=== PATIENT | female | born 1985 | race Caucasian/White ===

== ENCOUNTER 2016-11-21 16:09 | Emergency (ER) | payer SELFPAY ==
[2016-11-21] MEDS ORDERED: cefTRIAXone 250 MG Vial IM ONE (16:29)
--- NOTE | 2016-11-21 16:37 | EDM.PDOC ---
ED HPI GENERAL MEDICAL PROBLEM - General Chief Complaint: Skin Complaint Stated Complaint: POSSIBLE INFECTION LT ARM Time Seen by Provider: 11/21/16 16:20 Source of Information: Reports: Patient History Limitations: Reports: No Limitations - History of Present Illness INITIAL COMMENTS - FREE TEXT/NARRATIVE: History of present illness: 31-year-old female presenting with acute onset pain and swelling and erythema to left upper arm. Patient recently had a cover tattoo approximately 2 days ago by an artist she has never gone to before and has had increasing pain and difficulty with the arm since. Review of systems: As per history of present illness and below otherwise all systems reviewed and negative. Past medical history: As per history of present illness and as reviewed below otherwise noncontributory. Surgical history: As per history of present illness and as reviewed below otherwise noncontributory. Social history: No reported history of drug or alcohol abuse. Family history: As per history of present illness and as reviewed below otherwise noncontributory. Physical exam: HEENT: Atraumatic, normocephalic, pupils reactive, negative for conjunctival pallor or scleral icterus, mucous membranes moist, throat clear, neck supple, nontender, trachea midline. Lungs: Clear to auscultation, breath sounds equal bilaterally, chest nontender. Heart: S1S2, regular, negative for clicks, rubs, or JVD. Abdomen: Soft, nondistended, nontender. Negative for masses or hepatosplenomegaly. Negative for costovertebral tenderness. Pelvis: Stable nontender. Genitourinary: Deferred. Rectal: Deferred. Extremities: Left upper arm with significant amount of body are in the upper bicep wrapping around to the tricep now with significant amount of erythema in a circumferential pattern on the arm that is also edematous and warm to the touch, otherwise negative for cords or calf pain. Neurovascular unremarkable. Neuro: Awake, alert, oriented. Cranial nerves II through XII unremarkable. Cerebellum unremarkable. Motor and sensory unremarkable throughout. Exam nonfocal. Diagnostics: [] Therapeutics: [2 g Rocephin IM] Impression: [Cellulitis] Plan: [Keflex] Definitive disposition and diagnosis as appropriate pending reevaluation and review of above. Left Arm Pain Score (Numeric/FACES): 7 - Related Data Allergies Allergy/AdvReac Type Severity Reaction Status Date / Time No Known Allergies Allergy Verified 11/21/16 16:18 Home Meds: Home Meds Cephalexin [Keflex] 500 mg PO QID #40 capsule 11/21/16 [Rx] Past Medical History - Past Health History Medical/Surgical History: Denies Medical/Surgical History - Infectious Disease History Infectious Disease History: Reports: Chicken Pox Social & Family History - Family History Family Medical History: Noncontributory - Tobacco Use Smoking Status *Q: Never Smoker Second Hand Smoke Exposure: No - Alcohol Use Days Per Week of Alcohol Use: 3 Number of Drinks Per Day: 2 Total Drinks Per Week: 6 - Recreational Drug Use Recreational Drug Use: No ED ROS GENERAL - Review of Systems Review Of Systems: See Below (See history of present illness) ED EXAM, SKIN/RASH Exam: See Below (History of present illness) Course - Vital Signs Last Recorded V/S: Last Vital Signs Temp 37.1 C 11/21/16 16:18 Pulse 83 11/21/16 16:18 Resp 16 11/21/16 16:18 BP 119/78 11/21/16 16:18 Pulse Ox 100 11/21/16 16:18 - Orders/Labs/Meds Meds: Medications Discontinued Medications Generic Name Dose Route Start Last Admin Trade Name Freq PRN Reason Stop Dose Admin Ceftriaxone Sodium 2,000 mg 11/21/16 16:29 Rocephin IM 11/21/16 16:30 ONETIME ONE Departure - Departure Time of Disposition: 16:36 Disposition: Home, Self-Care 01 Condition: Good Clinical Impression: Cellulitis - Discharge Information Prescriptions: Cephalexin [Keflex] 500 mg PO QID #40 capsule Forms: ED Department Discharge Additional Instructions: The following information is given to patients seen in the emergency department who are being discharged to home. This information is to outline your options for follow-up care. We provide all patients seen in our emergency department with a follow-up referral. The need for follow-up, as well as the timing and circumstances, are variable depending upon the specifics of your emergency department visit. If you don't have a primary care physician on staff, we will provide you with a referral. We always advise you to contact your personal physician following an emergency department visit to inform them of the circumstance of the visit and for follow-up with them and/or the need for any referrals to a consulting specialist. The emergency department will also refer you to a specialist when appropriate. This referral assures that you have the opportunity for follow-up care with a specialist. All of these measure are taken in an effort to provide you with optimal care, which includes your follow-up. Under all circumstances we always encourage you to contact your private physician who remains a resource for coordinating your care. When calling for follow-up care, please make the office aware that this follow-up is from your recent emergency room visit. If for any reason you are refused follow-up, please contact the [facility] Emergency Department at and asked to speak to the emergency department charge nurse. Take medication as directed All primary care provider when to 2 days Return to ED as needed as discussed
[2016-11-21] MEDS ORDERED: cefTRIAXone 2,000 MG in Lidocaine 1% 4 ML IM ONE ×2 (16:55→17:01)
[2016-11-21] MEDS ORDERED: cefTRIAXone 2,000 MG, Lidocaine 1% 2.1 ML IM SCH ×2 (17:00)
== END 2016-11-21 17:32 | disposition home or self-care (01) ==
LOC: MW.ED 16:09
DX: L03.114 Cellulitis of left upper limb (principal)
CPT/HCPCS: 96372; 99283; J0696

== ENCOUNTER 2017-02-24 16:47 | Emergency (ER) | payer SELFPAY ==
[2017-02-24] MEDS ORDERED: diphenhydrAMINE 50 MG Cap PO ONE (16:56)
[2017-02-24] MEDS ORDERED: Cetirizine 10 MG Tab PO ONE (16:56)
--- NOTE | 2017-02-24 16:59 | EDM.PDOC ---
ED HPI GENERAL MEDICAL PROBLEM - General Chief Complaint: Bite:Animal, Insect Stated Complaint: PT HAS BEE STING Time Seen by Provider: 02/24/17 16:57 Source of Information: Reports: Patient History Limitations: Reports: No Limitations - History of Present Illness INITIAL COMMENTS - FREE TEXT/NARRATIVE: HISTORY AND PHYSICAL: []31-year-old female presents with a bee sting to her palm of her right hand History of Present Illness: []Patient has allergy to bees that she "swells a lot", has never stopped breathing and/or admitted to ICU for her bee sting Review of Systems: As per history of present illness and below otherwise all systems reviewed and negative. Past medical history: As per history of present illness and as reviewed below otherwise noncontributory. Surgical history: As per history of present illness and as reviewed below otherwise noncontributory. Social history: No reported history of drug or alcohol abuse. Family history: As per history of present illness and as reviewed below otherwise noncontributory. Physical exam: Alert and oriented female who looks anxious answers questions appropriately in full sentences without shortness of breath HEENT: Atraumatic, normocehpalic, pupils reactive, negative for conjunctival pallor or scleral icterus, mucous membranes moist, throat clear, neck supple, nontender, trachea midline. Lungs: Clear to auscultation, breath sounds equal bilaterally, chest non tender. Heart: S1S2, regular, negative for clicks, rubs, or JVD. Abdomen: Soft, nondistended, nontender. Negative for masses or hepatossplenmegaly. Negative for costovertebral tenderness. Pelvis: Stable nontender. Genitourinary: Deferred. Rectal: Deferred Extremities: Atraumatic, negative for cords or calf pain. Bee sting noted to the palmar surface of her right hand distally Neurovascular unremarkable. Neuro: Awake, alert, oriented. Cranial nerves II through XII unremarkable. Cerebellum unremarkable. Motor and sensory unremarkable throughout. Exam nonfocal. After medications have been given the patient is doing quite well no shortness of breath no swelling to her throat Diagnostics: [] Therapeutics: []Benadryl Zyrtec Impression: [Bee sting] Plan: []Discharged to home Continue with the Benadryl as discussed Continue with the Zyrtec as discussed Any worsening of symptoms tightening of your throat return immediately to the emergency room for further evaluation Definitive disposition and diagnosis as appropriate pending reevaluation and review of above. Onset: Today, Sudden Right Hand Pain Score (Numeric/FACES): 6 - Related Data Allergies Allergy/AdvReac Type Severity Reaction Status Date / Time No Known Allergies Allergy Verified 02/24/17 16:54 Home Meds: Home Meds . [No Known Home Meds] 02/24/17 [History] Past Medical History - Past Health History Medical/Surgical History: Denies Medical/Surgical History - Infectious Disease History Infectious Disease History: Reports: Chicken Pox Social & Family History - Family History Family Medical History: Noncontributory - Tobacco Use Smoking Status *Q: Never Smoker Second Hand Smoke Exposure: No - Alcohol Use Days Per Week of Alcohol Use: 3 Number of Drinks Per Day: 2 Total Drinks Per Week: 6 - Recreational Drug Use Recreational Drug Use: No ED ROS GENERAL - Review of Systems Review Of Systems: ROS reveals no pertinent complaints other than HPI. ED EXAM, ANIMAL BITE - Physical Exam Exam: See Below (See dictation) Course - Vital Signs Last Recorded V/S: Last Vital Signs Temp 36.6 C 02/24/17 16:55 Pulse 94 02/24/17 16:55 Resp 16 02/24/17 16:55 BP 134/85 02/24/17 16:55 Pulse Ox 98 02/24/17 16:55 - Orders/Labs/Meds Meds: Medications Discontinued Medications Generic Name Dose Route Start Last Admin Trade Name Freq PRN Reason Stop Dose Admin Cetirizine HCl 10 mg 02/24/17 16:56 Zyrtec PO 02/24/17 16:57 ONETIME ONE Diphenhydramine HCl 50 mg 02/24/17 16:56 Benadryl PO 02/24/17 16:57 ONETIME ONE Departure - Departure Time of Disposition: 17:18 Disposition: Home, Self-Care 01 Condition: Good Clinical Impression: Bee sting reaction Qualifiers: Encounter type: initial encounter Injury intent: accidental or unintentional Qualified Code(s): T63.441A - Toxic effect of venom of bees, accidental ( unintentional), initial encounter - Discharge Information Forms: ED Department Discharge Additional Instructions: The following information is given to patients seen in the emergency department who are being discharged to home. This information is to outline your options for follow-up care. We provide all patients seen in our emergency department with a follow-up referral. The need for follow-up, as well as the timing and circumstances, are variable depending upon the specifics of your emergency department visit. If you don't have a primary care physician on staff, we will provide you with a referral. We always advise you to contact your personal physician following an emergency department visit to inform them of the circumstance of the visit and for follow-up with them and/or the need for any referrals to a consulting specialist. The emergency department will also refer you to a specialist when appropriate. This referral assures that you have the opportunity for followup care with a specialist. All of these measure are taken in an effort to provide you with optimal care, which includes your followup. Under all circumstances we always encourage you to contact your private physician who remains a resource for coordinating your care. When calling for followup care, please make the office aware that this follow-up is from your recent emergency room visit. If for any reason you are refused follow-up, please contact the [facility] emergency department at and asked to speak to the emergency department charge nurse. Continue with the Benadryl as discussed Continue with the Zyrtec as discussed Any worsening of your breathing or throat tightening please return immediately for reevaluation
[2017-02-24 17:55] VITALS: BP 118/82
== END 2017-02-24 17:26 | disposition home or self-care (01) ==
LOC: MW.ED 16:47
DX: T63.441A Toxic effect of venom of bees, accidental (unintentional), initial encounter (principal)
CPT/HCPCS: 99283; A9270; 99282

== ENCOUNTER 2017-11-19 08:37 | Emergency (ER) | payer OTHER ==
[2017-11-19] MEDS ORDERED: Sodium Chloride 0.9% 1,000 ML IV ONE (08:38)
[2017-11-19] MEDS ORDERED: Aspirin 81 MG Tab.Chew PO ONE (08:38)
[2017-11-19] MEDS ORDERED: Pantoprazole 40 MG Vial IVPUSH ONE (08:39)
--- NOTE | 2017-11-19 08:39 | EDM.PDOC ---
ED HPI GENERAL MEDICAL PROBLEM - General Chief Complaint: Chest Pain Stated Complaint: CHEST PAIN Time Seen by Provider: 11/19/17 08:39 Source of Information: Reports: Patient - History of Present Illness INITIAL COMMENTS - FREE TEXT/NARRATIVE: HISTORY AND PHYSICAL: History of present illness: [Patient presents with chest pain began last night she has a history of anxiety untreated chest pain is 4 out of 10 nonradiating not associated with arm neck or jaw no associated shortness of breath or diaphoresis Pain is worse with deep inspiration she denies any cough sore throat runny nose No fever nausea vomiting chills sweats no headache dizziness or palpitation no bowel or urine symptoms History of tubal ligation ] Review of systems: As per history of present illness and below otherwise all systems reviewed and negative. Past medical history: As per history of present illness and as reviewed below otherwise noncontributory. Surgical history: As per history of present illness and as reviewed below otherwise noncontributory. Social history: No reported history of drug or alcohol abuse. Family history: As per history of present illness and as reviewed below otherwise noncontributory. Physical exam: HEENT: Atraumatic, normocephalic, pupils reactive, negative for conjunctival pallor or scleral icterus, mucous membranes moist, throat clear, neck supple, nontender, trachea midline. Lungs: Clear to auscultation, breath sounds equal bilaterally, chest tender along left sternal border and lower rib margins Heart: S1S2, regular, negative for clicks, rubs, or JVD. Abdomen: Soft, nondistended, nontender. Negative for masses or hepatosplenomegaly. Negative for costovertebral tenderness. Pelvis: Stable nontender. Genitourinary: Deferred. Rectal: Deferred. Extremities: Atraumatic, negative for cords or calf pain. Neurovascular unremarkable. Neuro: Awake, alert, oriented. Cranial nerves II through XII unremarkable. Cerebellum unremarkable. Motor and sensory unremarkable throughout. Exam nonfocal. Diagnostics: [CBC CMP UA troponin lipase hCG EKG Chest 1 view] Therapeutics: [1 L normal saline bolus Aspirin 324 mg chewable ] Rest ice ibuprofen Follow-up with primary care Impression: Costochondritis Definitive disposition and diagnosis as appropriate pending reevaluation and review of above. chest pain Pain Score (Numeric/FACES): 7 - Related Data Allergies Allergy/AdvReac Type Severity Reaction Status Date / Time No Known Allergies Allergy Verified 11/19/17 08:38 Home Meds: Home Meds . [No Known Home Meds] 02/24/17 [History] Past Medical History - Past Health History Medical/Surgical History: Denies Medical/Surgical History HEENT History: Reports: None Cardiovascular History: Reports: None Respiratory History: Reports: None Gastrointestinal History: Reports: None [employer] History: Reports: None Musculoskeletal History: Reports: None Neurological History: Reports: None Endocrine/Metabolic History: Reports: None Dermatologic History: Reports: None - Infectious Disease History Infectious Disease History: Reports: Chicken Pox - Past Surgical History HEENT Surgical History: Reports: None Cardiovascular Surgical History: Reports: None Respiratory Surgical History: Reports: None Female Surgical History: Reports: Other (See Below) Other Female Surgeries/Procedures: salpingectomy Neurological Surgical History: Reports: None Musculoskeletal Surgical History: Reports: None Social & Family History - Family History Family Medical History: Noncontributory ED ROS GENERAL - Review of Systems Review Of Systems: See Below ED EXAM, GENERAL - Physical Exam Exam: See Below Course - Vital Signs Last Recorded V/S: Last Vital Signs Temp 96.9 F 11/19/17 08:38 Pulse 77 11/19/17 10:28 Resp 20 11/19/17 10:28 BP 120/77 11/19/17 10:28 Pulse Ox 99 11/19/17 10:28 - Orders/Labs/Meds Orders: Active Orders 24 hr Category Date Time Status EKG Documentation Completion [RC] STAT Care 11/19/17 08:39 Active UA W/MICROSCOPIC [URIN] Stat Lab 11/19/17 10:23 Ordered Labs: Laboratory Tests 11/19/17 11/19/17 11/19/17 Range/Units 08:45 08:45 08:45 WBC 12.12 H (4.0-11.0) K/uL RBC 4.50 (4.30-5.90) M/uL Hgb 12.7 (12.0-16.0) g/dL Hct 38.8 (36.0-46.0) % MCV 86.2 (80.0-98.0) fL MCH 28.2 (27.0-32.0) pg MCHC 32.7 (31.0-37.0) g/dL RDW Std Deviation 44.9 (28.0-62.0) fl RDW Coeff of [place] 14 (11.0-15.0) % Plt Count 239 (150-400) K/uL MPV 11.40 (7.40-12.00) fL Neut % (Auto) 73.9 (48.0-80.0) % Lymph % (Auto) 16.3 (16.0-40.0) % [place] % (Auto) 7.8 (0.0-15.0) % Eos % (Auto) 1.8 (0.0-7.0) % Baso % (Auto) 0.2 (0.0-1.5) % Neut # (Auto) 9.0 H (1.4-5.7) K/uL Lymph # (Auto) 2.0 (0.6-2.4) K/uL [place] # (Auto) 0.9 H (0.0-0.8) K/uL Eos # (Auto) 0.2 (0.0-0.7) K/uL Baso # (Auto) 0.0 (0.0-0.1) K/uL Nucleated RBC % 0.0 /100WBC Nucleated RBCs # 0 K/uL Sodium 138 (136-145) mmol/L Potassium 4.3 (3.5-5.1) mmol/L Chloride 105 (98-107) mmol/L Carbon Dioxide 25.7 (21.0-32.0) mmol/L BUN 14 (7.0-18.0) mg/dL Creatinine 0.9 (0.6-1.0) mg/dL Est Cr Clr Drug Dosing 80.00 mL/min Estimated GFR (MDRD) > 60.0 ml/min Glucose 83 (74-106) mg/dL Calcium 8.8 (8.5-10.1) mg/dL Total Bilirubin 0.6 (0.2-1.0) mg/dL AST 19 (15-37) IU/L ALT 21 (14-63) IU/L Alkaline Phosphatase 71 (46-116) U/L Troponin I < 0.050 (0.000-0.056) ng/mL C-Reactive Protein 1.70 H (0.00-0.90) mg/dL Total Protein 7.4 (6.4-8.2) g/dL Albumin 3.6 (3.4-5.0) g/dL Globulin 3.8 H (2.0-3.5) g/dL Albumin/Globulin Ratio 1.0 L (1.3-2.8) Lipase 90 (73-393) U/L Urine Color Urine Appearance Urine pH (5.0-8.0) Ur Specific [place] (1.001-1.035) Urine Protein (NEGATIVE) mg/dL Urine Glucose (UA) (NEGATIVE) mg/dL Urine Ketones (NEGATIVE) mg/dL Urine Occult Blood (NEGATIVE) Urine Nitrite (NEGATIVE) Urine Bilirubin (NEGATIVE) Urine Urobilinogen (<2.0) EU/dL Ur Leukocyte Esterase (NEGATIVE) Urine RBC (0-2/HPF) Urine WBC (0-5/HPF) Ur Epithelial Cells (NONE-FEW) Urine Bacteria (NEGATIVE) 11/19/17 Range/Units 10:23 WBC (4.0-11.0) K/uL RBC (4.30-5.90) M/uL Hgb (12.0-16.0) g/dL Hct (36.0-46.0) % MCV (80.0-98.0) fL MCH (27.0-32.0) pg MCHC (31.0-37.0) g/dL RDW Std Deviation (28.0-62.0) fl RDW Coeff of [place] (11.0-15.0) % Plt Count (150-400) K/uL MPV (7.40-12.00) fL Neut % (Auto) (48.0-80.0) % Lymph % (Auto) (16.0-40.0) % [place] % (Auto) (0.0-15.0) % Eos % (Auto) (0.0-7.0) % Baso % (Auto) (0.0-1.5) % Neut # (Auto) (1.4-5.7) K/uL Lymph # (Auto) (0.6-2.4) K/uL [place] # (Auto) (0.0-0.8) K/uL Eos # (Auto) (0.0-0.7) K/uL Baso # (Auto) (0.0-0.1) K/uL Nucleated RBC % /100WBC Nucleated RBCs # K/uL Sodium (136-145) mmol/L Potassium (3.5-5.1) mmol/L Chloride (98-107) mmol/L Carbon Dioxide (21.0-32.0) mmol/L BUN (7.0-18.0) mg/dL Creatinine (0.6-1.0) mg/dL Est Cr Clr Drug Dosing mL/min Estimated GFR (MDRD) ml/min Glucose (74-106) mg/dL Calcium (8.5-10.1) mg/dL Total Bilirubin (0.2-1.0) mg/dL AST (15-37) IU/L ALT (14-63) IU/L Alkaline Phosphatase (46-116) U/L Troponin I (0.000-0.056) ng/mL C-Reactive Protein (0.00-0.90) mg/dL Total Protein (6.4-8.2) g/dL Albumin (3.4-5.0) g/dL Globulin (2.0-3.5) g/dL Albumin/Globulin Ratio (1.3-2.8) Lipase (73-393) U/L Urine Color YELLOW Urine Appearance CLEAR Urine pH 6.5 (5.0-8.0) Ur Specific [place] <= 1.005 (1.001-1.035) Urine Protein NEGATIVE (NEGATIVE) mg/dL Urine Glucose (UA) NEGATIVE (NEGATIVE) mg/dL Urine Ketones NEGATIVE (NEGATIVE) mg/dL Urine Occult Blood NEGATIVE (NEGATIVE) Urine Nitrite NEGATIVE (NEGATIVE) Urine Bilirubin NEGATIVE (NEGATIVE) Urine Urobilinogen 0.2 (<2.0) EU/dL Ur Leukocyte Esterase NEGATIVE (NEGATIVE) Urine RBC 0-2 (0-2/HPF) Urine WBC 0-1 (0-5/HPF) Ur Epithelial Cells RARE (NONE-FEW) Urine Bacteria RARE (NEGATIVE) Meds: Medications Discontinued Medications Generic Name Dose Route Start Last Admin Trade Name Freq PRN Reason Stop Dose Admin Aspirin 324 mg 11/19/17 08:38 11/19/17 09:00 Aspirin PO 11/19/17 08:39 324 mg ONETIME ONE Administration Sodium Chloride 1,000 mls @ 999 mls/hr 11/19/17 08:38 11/19/17 09:00 Normal Saline IV 06/13/18 09:38 999 mls/hr STAT ONE Administration Lorazepam 1 mg 11/19/17 08:42 11/19/17 08:59 Ativan IVPUSH 11/19/17 08:43 1 mg ONETIME ONE Administration Pantoprazole Sodium 80 mg 11/19/17 08:39 11/19/17 08:59 Protonix Iv IVPUSH 11/19/17 08:40 80 mg .BOLUS ONE Administration Departure - Departure Time of Disposition: 10:45 Disposition: Home, Self-Care 01 Condition: Good Clinical Impression: Costochondritis, acute - Discharge Information Forms: ED Department Discharge Additional Instructions: Rest Ice 20 minute intervals 3 times daily 7-10 days Ibuprofen 400 mg 3 times daily 7-10 days Follow-up with primary care in 2 weeks sooner as needed [facility] - Primary Care [address] [place] [id number] The following information is given to patients seen in the emergency department who are being discharged to home. This information is to outline your options for follow-up care. We provide all patients seen in our emergency department with a follow-up referral. The need for follow-up, as well as the timing and circumstances, are variable depending upon the specifics of your emergency department visit. If you don't have a primary care physician on staff, we will provide you with a referral. We always advise you to contact your personal physician following an emergency department visit to inform them of the circumstance of the visit and for follow-up with them and/or the need for any referrals to a consulting specialist. The emergency department will also refer you to a specialist when appropriate. This referral assures that you have the opportunity for follow-up care with a specialist. All of these measure are taken in an effort to provide you with optimal care, which includes your follow-up. Under all circumstances we always encourage you to contact your private physician who remains a resource for coordinating your care. When calling for follow-up care, please make the office aware that this follow-up is from your recent emergency room visit. If for any reason you are refused follow-up, please contact the [facility] emergency department at and asked to speak to the emergency department charge nurse. - My Orders Last 24 Hours: My Active Orders 11/19/17 08:39 EKG Documentation Completion [RC] STAT 11/19/17 10:23 UA W/MICROSCOPIC [URIN] Stat - Assessment/Plan Last 24 Hours: My Active Orders 11/19/17 08:39 EKG Documentation Completion [RC] STAT 11/19/17 10:23 UA W/MICROSCOPIC [URIN] Stat
[2017-11-19] MEDS ORDERED: LORazepam 2 MG/ML SDV IVPUSH ONE (08:42)
[2017-11-19 09:26] LABS: CHLORIDE,CL 105 mmol/L (98-107); SODIUM,NA 138 mmol/L (136-145)
--- NOTE | 2017-11-19 10:18 | CR ---
EXAMINATION: Portable chest radiograph. HISTORY: Shortness of breath. FINDINGS: The trachea is midline. The cardiomediastinal silhouette is within normal limits. No pulmonary infilt rates, effusions or pneumothorax. Osseous structures appear unremarkable. IMPRESSION: No acute cardiopulmonary process.
[2017-11-19 11:13] VITALS: BP 121/80
== END 2017-11-19 11:09 | disposition home or self-care (01) ==
LOC: MW.ED 08:37
DX: M94.0 Chondrocostal junction syndrome [Tietze] (principal)
CPT/HCPCS: 36415; 71045; 80053; 81001; 83690; 84484; 85025; 86140; 93005; 96361; 96374; 96375; 99285; A9270; C9113; J2060; J7040; 99283

== ENCOUNTER 2018-01-18 19:54 | Emergency (ER) | payer MEDICAID, OTHER ==
--- NOTE | 2018-01-18 19:55 | EDM.PDOC ---
ED HPI GENERAL MEDICAL PROBLEM - General Stated Complaint: ABD PAIN Time Seen by Provider: 01/18/18 19:55 Source of Information: Reports: Patient History Limitations: Reports: No Limitations - History of Present Illness INITIAL COMMENTS - FREE TEXT/NARRATIVE: HISTORY AND PHYSICAL: History of present illness: 32-year-old female presenting to permanently chief complaint right lower quadrant pain 2 hours. Patient states that approximately 2 hours ago she coughed and felt a pop in her right lower abdomen. States that since then she's felt shooting stabbing pain in that area. She does report that it pain radiates into her right lower groin as well. Pain currently 8 out of 10. She denies any previous history of abdominal surgery. She was previously healthy up until this. Denies any nausea, vomiting, diarrhea, blood stool or dark tarry stool 2100- CBC,CMP, UA unremarkable Review of systems: As per history of present illness and below otherwise all systems reviewed and negative. Past medical history: As per history of present illness and as reviewed below otherwise noncontributory. Surgical history: As per history of present illness and as reviewed below otherwise noncontributory. Social history: No reported history of drug or alcohol abuse. Family history: As per history of present illness and as reviewed below otherwise noncontributory. Physical exam: HEENT: Atraumatic, normocephalic, pupils reactive, negative for conjunctival pallor or scleral icterus, mucous membranes moist, throat clear, neck supple, nontender, trachea midline. Lungs: Clear to auscultation, breath sounds equal bilaterally, chest nontender. Heart: S1S2, regular, negative for clicks, rubs, or JVD. Abdomen: Soft, nondistended, Right lower quadrant tendernes into right groin. Negative for masses or hepatosplenomegaly. Negative for costovertebral tenderness. Pelvis: Stable nontender. Genitourinary: Deferred. Rectal: Deferred. Extremities: Atraumatic, negative for cords or calf pain. Neurovascular unremarkable. Neuro: Awake, alert, oriented. Cranial nerves II through XII unremarkable. Cerebellum unremarkable. Motor and sensory unremarkable throughout. Exam nonfocal. Diagnostics: CBC, CMP, UA/UC, hCG, CT abdomen and pelvis, Therapeutics: Toradol 60 mg IM x1 Impression: Right lower quadrant pain Possible hernia Plan: CBC, CMP, UA, hCG, CT abdomen and pelvis were all unremarkable for any specific etiology of the pain. On exam difficult to assess however story as well as exam findings possibly suggestive hernia. Will have patient follow-up with surgery for further assessment. Did give the patient a prescription for [place] 5/325. Definitive disposition and diagnosis as appropriate pending reevaluation and review of above. Abdominal Pain Score (Numeric/FACES): 10 - Related Data Allergies Allergy/AdvReac Type Severity Reaction Status Date / Time No Known Allergies Allergy Verified 11/19/17 08:38 Home Meds: Home Meds . [No Known Home Meds] 02/24/17 [History] Past Medical History - Past Health History Medical/Surgical History: Denies Medical/Surgical History HEENT History: Reports: None Cardiovascular History: Reports: None Respiratory History: Reports: None Gastrointestinal History: Reports: None HOUSE DIRECTOR History: Reports: None Musculoskeletal History: Reports: None Neurological History: Reports: None Endocrine/Metabolic History: Reports: None Dermatologic History: Reports: None - Infectious Disease History Infectious Disease History: Reports: Chicken Pox - Past Surgical History HEENT Surgical History: Reports: None Cardiovascular Surgical History: Reports: None Respiratory Surgical History: Reports: None Female Surgical History: Reports: Other (See Below) Other Female Surgeries/Procedures: salpingectomy Neurological Surgical History: Reports: None Musculoskeletal Surgical History: Reports: None Social & Family History - Family History Family Medical History: Noncontributory - Caffeine Use Caffeine Use: Reports: Coffee ED ROS GENERAL - Review of Systems Review Of Systems: ROS reveals no pertinent complaints other than HPI. ED EXAM, GENERAL - Physical Exam Exam: See Below Course - Vital Signs Last Recorded V/S: Last Vital Signs Temp 98.2 F 01/18/18 20:08 Pulse 85 01/18/18 20:08 Resp 16 01/18/18 20:08 BP 127/73 01/18/18 20:08 Pulse Ox 100 01/18/18 20:08 - Orders/Labs/Meds Orders: Active Orders 24 hr Category Date Time Status Abdomen Pelvis w Cont [CT] Stat Exams 01/18/18 21:07 Taken CULTURE URINE [RM] Stat Lab 01/18/18 20:40 Ordered HCG QUALITATIVE,URINE [URCHEM] Stat Lab 01/18/18 20:40 Ordered UA W/MICROSCOPIC [URIN] Stat Lab 01/18/18 20:40 Ordered Labs: Laboratory Tests 01/18/18 01/18/18 01/18/18 Range/Units 20:34 20:34 20:40 WBC 8.93 (4.0-11.0) K/uL RBC 4.40 (4.30-5.90) M/uL Hgb 12.6 (12.0-16.0) g/dL Hct 38.1 (36.0-46.0) % MCV 86.6 (80.0-98.0) fL MCH 28.6 (27.0-32.0) pg MCHC 33.1 (31.0-37.0) g/dL RDW Std Deviation 42.4 (28.0-62.0) fl RDW Coeff of Avery 13 (11.0-15.0) % Plt Count 287 (150-400) K/uL MPV 10.90 (7.40-12.00) fL Neut % (Auto) 62.4 (48.0-80.0) % Lymph % (Auto) 26.5 (16.0-40.0) % Brooks % (Auto) 8.6 (0.0-15.0) % Eos % (Auto) 2.2 (0.0-7.0) % Baso % (Auto) 0.3 (0.0-1.5) % Neut # (Auto) 5.6 (1.4-5.7) K/uL Lymph # (Auto) 2.4 (0.6-2.4) K/uL Brooks # (Auto) 0.8 (0.0-0.8) K/uL Eos # (Auto) 0.2 (0.0-0.7) K/uL Baso # (Auto) 0.0 (0.0-0.1) K/uL Nucleated RBC % 0.0 /100WBC Nucleated RBCs # 0 K/uL Sodium 140 (136-145) mmol/L Potassium 3.6 (3.5-5.1) mmol/L Chloride 105 (98-107) mmol/L Carbon Dioxide 26.0 (21.0-32.0) mmol/L BUN 15 (7.0-18.0) mg/dL Creatinine 0.8 (0.6-1.0) mg/dL Est Cr Clr Drug Dosing 90.00 mL/min Estimated GFR (MDRD) > 60.0 ml/min Glucose 100 (74-106) mg/dL Calcium 8.6 (8.5-10.1) mg/dL Total Bilirubin 0.2 (0.2-1.0) mg/dL AST 13 L (15-37) IU/L ALT 21 (14-63) IU/L Alkaline Phosphatase 73 (46-116) U/L Total Protein 7.5 (6.4-8.2) g/dL Albumin 3.7 (3.4-5.0) g/dL Globulin 3.8 H (2.0-3.5) g/dL Albumin/Globulin Ratio 1.0 L (1.3-2.8) Urine Color Urine Appearance Urine pH (5.0-8.0) Ur Specific [place] (1.001-1.035) Urine Protein (NEGATIVE) mg/dL Urine Glucose (UA) (NEGATIVE) mg/dL Urine Ketones (NEGATIVE) mg/dL Urine Occult Blood (NEGATIVE) Urine Nitrite (NEGATIVE) Urine Bilirubin (NEGATIVE) Urine Urobilinogen (<2.0) EU/dL Ur Leukocyte Esterase (NEGATIVE) Urine RBC (0-2/HPF) Urine WBC (0-5/HPF) Ur Epithelial Cells (NONE-FEW) Urine Bacteria (NEGATIVE) Urine HCG, Qual NEGATIVE (NEGATIVE) 01/18/18 Range/Units 20:40 WBC (4.0-11.0) K/uL RBC (4.30-5.90) M/uL Hgb (12.0-16.0) g/dL Hct (36.0-46.0) % MCV (80.0-98.0) fL MCH (27.0-32.0) pg MCHC (31.0-37.0) g/dL RDW Std Deviation (28.0-62.0) fl RDW Coeff of Avery (11.0-15.0) % Plt Count (150-400) K/uL MPV (7.40-12.00) fL Neut % (Auto) (48.0-80.0) % Lymph % (Auto) (16.0-40.0) % Brooks % (Auto) (0.0-15.0) % Eos % (Auto) (0.0-7.0) % Baso % (Auto) (0.0-1.5) % Neut # (Auto) (1.4-5.7) K/uL Lymph # (Auto) (0.6-2.4) K/uL Brooks # (Auto) (0.0-0.8) K/uL Eos # (Auto) (0.0-0.7) K/uL Baso # (Auto) (0.0-0.1) K/uL Nucleated RBC % /100WBC Nucleated RBCs # K/uL Sodium (136-145) mmol/L Potassium (3.5-5.1) mmol/L Chloride (98-107) mmol/L Carbon Dioxide (21.0-32.0) mmol/L BUN (7.0-18.0) mg/dL Creatinine (0.6-1.0) mg/dL Est Cr Clr Drug Dosing mL/min Estimated GFR (MDRD) ml/min Glucose (74-106) mg/dL Calcium (8.5-10.1) mg/dL Total Bilirubin (0.2-1.0) mg/dL AST (15-37) IU/L ALT (14-63) IU/L Alkaline Phosphatase (46-116) U/L Total Protein (6.4-8.2) g/dL Albumin (3.4-5.0) g/dL Globulin (2.0-3.5) g/dL Albumin/Globulin Ratio (1.3-2.8) Urine Color YELLOW Urine Appearance HAZY Urine pH 6.0 (5.0-8.0) Ur Specific [place] >= 1.030 (1.001-1.035) Urine Protein NEGATIVE (NEGATIVE) mg/dL Urine Glucose (UA) NEGATIVE (NEGATIVE) mg/dL Urine Ketones NEGATIVE (NEGATIVE) mg/dL Urine Occult Blood SMALL H (NEGATIVE) Urine Nitrite NEGATIVE (NEGATIVE) Urine Bilirubin NEGATIVE (NEGATIVE) Urine Urobilinogen 0.2 (<2.0) EU/dL Ur Leukocyte Esterase NEGATIVE (NEGATIVE) Urine RBC 1-3 (0-2/HPF) Urine WBC 0-2 (0-5/HPF) Ur Epithelial Cells FEW (NONE-FEW) Urine Bacteria FEW (NEGATIVE) Urine HCG, Qual (NEGATIVE) Meds: Medications Discontinued Medications Generic Name Dose Route Start Last Admin Trade Name Freq PRN Reason Stop Dose Admin Ketorolac Tromethamine 60 mg 0812/18 21:18 01/18/18 22:00 Toradol IM 01/18/18 21:19 60 mg ONETIME ONE Administration Departure - Departure Time of Disposition: 22:46 Disposition: Home, Self-Care 01 Condition: Good Clinical Impression: Right lower quadrant pain, Hernia - Discharge Information Referrals: PCP,None [Primary Care Provider] - Additional Instructions: My general discharge The following information is given to patients seen in the emergency department who are being discharged to home. This information is to outline your options for follow-up care. We provide all patients seen in our emergency department with a follow-up referral. The need for follow-up, as well as the timing and circumstances, are variable depending upon the specifics of your emergency department visit. If you don't have a primary care physician on staff, we will provide you with a referral. We always advise you to contact your personal physician following an emergency department visit to inform them of the circumstance of the visit and for follow-up with them and/or the need for any referrals to a consulting specialist. The emergency department will also refer you to a specialist when appropriate. This referral assures that you have the opportunity for follow-up care with a specialist. All of these measure are taken in an effort to provide you with optimal care, which includes your follow-up. Under all circumstances we always encourage you to contact your private physician who remains a resource for coordinating your care. When calling for follow-up care, please make the office aware that this follow-up is from your recent emergency room visit. If for any reason you are refused follow-up, please contact the [facility] Emergency Department at and asked to speak to the emergency department charge nurse. My General Surgery [facility] Specialty Care - General Surgery Professional Building [address] [place] [address], [address] [place] [address] Please call number above follow up with general surgery. He did see Dr. Martin in the emergency room. Take medication as prescribed Return to Emergency department if any new or worsening symptoms. - My Orders Last 24 Hours: My Active Orders 01/18/18 20:40 CULTURE URINE [RM] Stat HCG QUALITATIVE,URINE [URCHEM] Stat UA W/MICROSCOPIC [URIN] Stat 01/18/18 21:07 Abdomen Pelvis w Cont [CT] Stat - Assessment/Plan Last 24 Hours: My Active Orders 01/18/18 20:40 CULTURE URINE [RM] Stat HCG QUALITATIVE,URINE [URCHEM] Stat UA W/MICROSCOPIC [URIN] Stat 01/18/18 21:07 Abdomen Pelvis w Cont [CT] Stat
[2018-01-18 21:11] LABS: CHLORIDE,CL 105 mmol/L (98-107); SODIUM,NA 140 mmol/L (136-145)
[2018-01-18] MEDS ORDERED: Ketorolac 60 MG/2 ML SDV IM ONE (21:18)
[2018-01-18 23:05] VITALS: BP 123/71
[2018-01-19] MEDS ORDERED: Iopamidol 755 MG/ML 500 ML Multipack Bottle IVPUSH STA (04:09)
--- NOTE | 2018-01-19 04:23 | CONS ---
DATE OF CONSULTATION: DATE OF : 1985 PRIMARY CARE PHYSICIAN: None PCP REFERRING PHYSICIAN: Miles Rodriguez MD CONCERNING QUESTION: Abdominal pain. HISTORY OF PRESENT ILLNESS: The patient is a 32-year-old lady, complaining of a 3 to 4-hour history of acute onset right lower quadrant pain. Pain intensified with coughing and 8/10 on a pain scale, denied prior episode. Denied fever, chills, or diarrhea. Denied bright red blood per rectum or dysuria. PAST MEDICAL HISTORY: Significant for no diabetes, ME, CVA, or hypertension. PAST SURGICAL HISTORY: The patient has BSO-ZURI. SOCIAL HISTORY: The patient is a smoker. FAMILY HISTORY: Noncontributory. ALLERGIES: Please refer nursing for details. MEDICATIONS: Please refer nursing for details. PHYSICAL EXAMINATION: GENERAL: A very pleasant lady, in no acute distress. HEENT: Normocephalic, atraumatic. Sclerae anicteric. LUNGS: Clear to auscultation. HEART: Regular rate and rhythm. ABDOMEN: Normal bowel sounds. Exquisite tenderness in the previous surgical scar. There is no bulging observed. Also, no bulging on the lips upon Valsalva. LABORATORY DATA: Laboratory value upon consultation; white count is 8.93, and H and H are 13 and 38. Total bilirubin is 0.2. UA with little bit of blood, small. IMPRESSION: Right lower quadrant pain, concern about abdominal etiology. We will proceed with CAT scan of abdomen and pelvis, preferable with p.o. and IV contrast. Depends on the CAT scan result, effective management. Follow the patient with you. addendum: per ED MD, CT negative, pt home and fu with me HARDY / ONIEL /[id number] IZABEL
--- NOTE | 2018-01-19 13:53 | CT ---
EXAM DATE: 01/18/18 PATIENT'S AGE: 32 Patient: TYSON PEARCE Facility: [place], [place] Site . Site : 1985 Study: CT Abdomen/Pelvis [id number]/12/2018 9:51:39 PM Ordering Physician: Michael Aquino Final Report: INDICATION: Right lower quadrant pain. TECHNIQUE: CT abdomen and pelvis performed after IV injection of 100 mL of Isovue-370. FINDINGS: The appendix is normal. Small bone island in the right proximal femur/femoral head. Gallbladder is contracted. Small cyst in the right kidney. Uterus is somewhat heterogeneous which could indicate underlying parenchymal disease in the uterus. Remainder negative. IMPRESSION: 1. No acute disease in abdomen or pelvis. 2. Uterus is mildly heterogeneous in density and enhancement which could indicate uterine parenchymal disease. Other findings as above. Please note that all CT scans at this facility use dose modulation, iterative reconstruction, and/or weight-based dosing when appropriate to reduce radiation dose to as low as reasonably achievable. Dictated by Rashawn Solomon MD @ Jan 18 2018 10:17PM (Electronic Signature) Report Signed by Proxy. [facility] HOSPITALMarianne
== END 2018-01-18 23:05 | disposition home or self-care (01) ==
LOC: MW.ED 19:54
DX: K46.9 Unspecified abdominal hernia without obstruction or gangrene (principal); R10.32 Left lower quadrant pain
CPT/HCPCS: 36415; 74177; 80053; 81001; 81025; 85025; 87086; 96372; 99284; J1885; Q9967; 99283

== ENCOUNTER 2018-07-01 17:13 | Emergency (ER) | payer SELFPAY ==
[2018-07-01] MEDS ORDERED: Sodium Chloride 0.9% 1,000 ML IV ONE (17:30)
[2018-07-01] MEDS ORDERED: Ondansetron 4 MG/2 ML SDV IVPUSH ONE (17:30)
[2018-07-01] MEDS ORDERED: Ketorolac 30 MG/ML SDV IVPUSH ONE (17:33)
--- NOTE | 2018-07-01 18:01 | EDM.PDOC ---
ED HPI GENERAL MEDICAL PROBLEM - General Chief Complaint: Gastrointestinal Problem Stated Complaint: VOMITING Time Seen by Provider: 07/01/18 17:18 Source of Information: Reports: Patient History Limitations: Reports: No Limitations - History of Present Illness INITIAL COMMENTS - FREE TEXT/NARRATIVE: HISTORY AND PHYSICAL: History of present illness: Patient is a 33-year-old female who presents to the emergency room with complaints of nausea, vomiting, diarrhea x 3 days. States she has been nausea, vomiting and diarrhea so frequently that she now has nonspecific generalized abdominal pain. Denies any blood in her stools. States that she just watery diarrhea. Non-productive sporadic cough. She is concerned she may be dehydrated and needing IV fluids. She denies any fever, chills, chest pain, shortness of breath. He denies any dysuria or any chance of . Review of systems: As per history of present illness and below otherwise all systems reviewed and negative. Past medical history: As per history of present illness and as reviewed below otherwise noncontributory. Surgical history: As per history of present illness and as reviewed below otherwise noncontributory. Social history: See social history for further information Family history: As per history of present illness and as reviewed below otherwise noncontributory. Physical exam: General: Well developed and well nourished 33-year-old female. Alert and oriented. Nontoxic appearing and in no acute distress. HEENT: Atraumatic, normocephalic, pupils equal and reactive bilaterally, negative for conjunctival pallor or scleral icterus, mucous membranes moist, TMs normal bilaterally, throat clear, neck supple, nontender, trachea midline. No drooling or trismus noted. No meningeal signs. No hot potato voice noted. Lungs: Clear to auscultation, breath sounds equal bilaterally, chest nontender. Heart: S1S2, regular rate and rhythm without overt murmur Abdomen: Soft, nondistended, diffuse nonspecific abdominal tenderness throughout. Negative for masses or hepatosplenomegaly. Negative for costovertebral tenderness. Pelvis: Stable nontender. Genitourinary: Deferred. Rectal: Deferred. Skin: Intact, warm, dry. No lesions or rashes noted. Extremities: Atraumatic, negative for cords or calf pain. Neurovascular unremarkable. Neuro: Awake, alert, oriented. Cranial nerves II through XII unremarkable. Cerebellum unremarkable. Motor and sensory unremarkable throughout. Exam nonfocal. Notes: CT of the abdomen and pelvis shows no acute findings. Splenomegaly noted. Patient does have leukocytosis with a reading of 16.. He did have slight elevation of monocytes. She reports she has had a sore throat over the past 1-2 days. Testing results were reviewed with patient. She states she still continues to have severe abdominal pain. Dr Escobedo was consulted on this patient. He evaluated this patient. He does not see any need for ultrasound at this time. He requests that the patient get a GI cocktail and patient to be discharged to home to follow-up with him as needed. Patient was unable to give a stool sample. We'll send her home with an outpatient prescription to have stool studies done. Patient education was completed. She voices understanding and is agreeable to plan of care. She feels comfortable being discharged to home. Diagnostics: CBC, CMP, UA, amylase, lipase, CT abdomen and pelvis, stool studies Therapeutics: IV fluid, Zofran, Toradol, Morphine, GI cocktail, Bentyl Prescription: Zofran, Adams Impression: Leukocytosis, unspecified Diarrhea Nonspecific Abdominal Pain Plan: 1. Supportive care measures such as Tylenol and ibuprofen for pain and fever management. Zofran and Adams have been prescribed. Please take as directed 2. Ensure you are staying hydrated by drinking plenty of fluids. 3. Get plenty of rest. [place] diet and advance as tolerated. 4. Please follow up with your primary care provider or [facility] next week. Return to the ED as needed and as discussed. Definitive disposition and diagnosis as appropriate pending reevaluation and review of above. Duration: Day(s): Abdomen Pain Score (Numeric/FACES): 4 - Related Data Allergies Allergy/AdvReac Type Severity Reaction Status Date / Time No Known Allergies Allergy Verified 07/01/18 17:25 Home Meds: Home Meds Acetaminophen/HYDROcodone [Adams 325-5 MG] 1 dose PO Q4H PRN #15 tablet [Rx] Ondansetron [Zofran ODT] 4 mg PO Q6H PRN #8 tab.dis 07/01/18 [Rx] Past Medical History - Past Health History Medical/Surgical History: Denies Medical/Surgical History HEENT History: Reports: None Cardiovascular History: Reports: None Respiratory History: Reports: None Gastrointestinal History: Reports: None DECORATION CHECKER History: Reports: None Musculoskeletal History: Reports: None Neurological History: Reports: None Endocrine/Metabolic History: Reports: None Dermatologic History: Reports: None - Infectious Disease History Infectious Disease History: Reports: Chicken Pox - Past Surgical History HEENT Surgical History: Reports: None Cardiovascular Surgical History: Reports: None Respiratory Surgical History: Reports: None Female Surgical History: Reports: Other (See Below) Other Female Surgeries/Procedures: salpingectomy Neurological Surgical History: Reports: None Musculoskeletal Surgical History: Reports: None Social & Family History - Family History Family Medical History: Noncontributory - Tobacco Use Smoking Status *Q: Never Smoker - Caffeine Use Caffeine Use: Reports: Coffee - Recreational Drug Use Recreational Drug Use: No ED ROS GENERAL - Review of Systems Review Of Systems: ROS reveals no pertinent complaints other than HPI. ED EXAM, GI/ABD - Physical Exam Exam: See Below (See dictation) Course - Vital Signs Last Recorded V/S: Last Vital Signs Temp 97.9 F 07/01/18 19:04 Pulse 99 07/01/18 20:50 Resp 18 07/01/18 20:50 BP 111/66 07/01/18 20:50 Pulse Ox 98 07/01/18 20:50 - Orders/Labs/Meds Orders: Active Orders 24 hr Category Date Time Status Orthostatic Vital Signs [RC] ASDIRECTED Care 07/01/18 20:52 Active CULTURE STOOL + CAMPY+SHIGATOX [RM] Stat Lab 07/01/18 18:08 Ordered Sodium Chloride 0.9% [Normal Saline] 1,000 ml Med 07/01/18 18:45 Active IV ASDIRECTED Medication Orders Sodium Chloride (Normal Saline) 1,000 mls @ 999 mls/hr IV ASDIRECTED COCO Last Admin: 07/01/18 19:05 Dose: 999 mls/hr Labs: Laboratory Tests 07/01/18 07/01/18 07/01/18 Range/Units 17:50 17:50 17:50 WBC 16.04 H (4.0-11.0) K/uL RBC 4.95 (4.30-5.90) M/uL Hgb 14.2 (12.0-16.0) g/dL Hct 42.2 (36.0-46.0) % MCV 85.3 (80.0-98.0) fL MCH 28.7 (27.0-32.0) pg MCHC 33.6 (31.0-37.0) g/dL RDW Std Deviation 41.5 (28.0-62.0) fl RDW Coeff of [place] 14 (11.0-15.0) % Plt Count 260 (150-400) K/uL MPV 11.90 (7.40-12.00) fL Neut % (Auto) 80.6 H (48.0-80.0) % Lymph % (Auto) 7.6 L (16.0-40.0) % [place] % (Auto) 11.2 (0.0-15.0) % Eos % (Auto) 0.4 (0.0-7.0) % Baso % (Auto) 0.2 (0.0-1.5) % Neut # (Auto) 12.9 H (1.4-5.7) K/uL Lymph # (Auto) 1.2 (0.6-2.4) K/uL [place] # (Auto) 1.8 H (0.0-0.8) K/uL Eos # (Auto) 0.1 (0.0-0.7) K/uL Baso # (Auto) 0.0 (0.0-0.1) K/uL Nucleated RBC % 0.0 /100WBC Nucleated RBCs # 0 K/uL Sodium 135 L (136-145) mmol/L Potassium 3.3 L (3.5-5.1) mmol/L Chloride 96 L (98-107) mmol/L Carbon Dioxide 27.1 (21.0-32.0) mmol/L BUN 10 (7.0-18.0) mg/dL Creatinine 0.9 (0.6-1.0) mg/dL Est Cr Clr Drug Dosing 79.25 mL/min Estimated GFR (MDRD) > 60.0 ml/min Glucose 101 (74-106) mg/dL Calcium 9.4 (8.5-10.1) mg/dL Total Bilirubin 0.4 (0.2-1.0) mg/dL AST 17 (15-37) IU/L ALT 21 (14-63) IU/L Alkaline Phosphatase 81 (46-116) U/L Total Protein 8.9 H (6.4-8.2) g/dL Albumin 3.2 L (3.4-5.0) g/dL Globulin 5.7 H (2.6-4.0) g/dL Albumin/Globulin Ratio 0.6 L (0.9-1.6) Amylase 32 (25-115) U/L Lipase 105 (73-393) U/L Urine Color Urine Appearance Urine pH (5.0-8.0) Ur Specific [place] (1.001-1.035) Urine Protein (NEGATIVE) mg/dL Urine Glucose (UA) (NEGATIVE) mg/dL Urine Ketones (NEGATIVE) mg/dL Urine Occult Blood (NEGATIVE) Urine Nitrite (NEGATIVE) Urine Bilirubin (NEGATIVE) Urine Ictotest Urine Urobilinogen (<2.0) EU/dL Ur Leukocyte Esterase (NEGATIVE) Urine RBC (0-2/HPF) Urine WBC (0-5/HPF) Ur Epithelial Cells (NONE-FEW) Urine Bacteria (NEGATIVE) Urinalysis Comment Monoscreen NEGATIVE (NEG) 07/01/18 Range/Units 17:57 WBC (4.0-11.0) K/uL RBC (4.30-5.90) M/uL Hgb (12.0-16.0) g/dL Hct (36.0-46.0) % MCV (80.0-98.0) fL MCH (27.0-32.0) pg MCHC (31.0-37.0) g/dL RDW Std Deviation (28.0-62.0) fl RDW Coeff of [place] (11.0-15.0) % Plt Count (150-400) K/uL MPV (7.40-12.00) fL Neut % (Auto) (48.0-80.0) % Lymph % (Auto) (16.0-40.0) % [place] % (Auto) (0.0-15.0) % Eos % (Auto) (0.0-7.0) % Baso % (Auto) (0.0-1.5) % Neut # (Auto) (1.4-5.7) K/uL Lymph # (Auto) (0.6-2.4) K/uL [place] # (Auto) (0.0-0.8) K/uL Eos # (Auto) (0.0-0.7) K/uL Baso # (Auto) (0.0-0.1) K/uL Nucleated RBC % /100WBC Nucleated RBCs # K/uL Sodium (136-145) mmol/L Potassium (3.5-5.1) mmol/L Chloride (98-107) mmol/L Carbon Dioxide (21.0-32.0) mmol/L BUN (7.0-18.0) mg/dL Creatinine (0.6-1.0) mg/dL Est Cr Clr Drug Dosing mL/min Estimated GFR (MDRD) ml/min Glucose (74-106) mg/dL Calcium (8.5-10.1) mg/dL Total Bilirubin (0.2-1.0) mg/dL AST (15-37) IU/L ALT (14-63) IU/L Alkaline Phosphatase (46-116) U/L Total Protein (6.4-8.2) g/dL Albumin (3.4-5.0) g/dL Globulin (2.6-4.0) g/dL Albumin/Globulin Ratio (0.9-1.6) Amylase (25-115) U/L Lipase (73-393) U/L Urine Color YELLOW Urine Appearance CLEAR Urine pH 6.0 (5.0-8.0) Ur Specific [place] 1.025 (1.001-1.035) Urine Protein 100 H (NEGATIVE) mg/dL Urine Glucose (UA) NEGATIVE (NEGATIVE) mg/dL Urine Ketones TRACE H (NEGATIVE) mg/dL Urine Occult Blood LARGE H (NEGATIVE) Urine Nitrite NEGATIVE (NEGATIVE) Urine Bilirubin SMALL H (NEGATIVE) Urine Ictotest NEGATIVE Urine Urobilinogen 1.0 (<2.0) EU/dL Ur Leukocyte Esterase NEGATIVE (NEGATIVE) Urine RBC 2-3 (0-2/HPF) Urine WBC 0-1 (0-5/HPF) Ur Epithelial Cells RARE (NONE-FEW) Urine Bacteria RARE (NEGATIVE) Urinalysis Comment Monoscreen (NEG) Meds: Medications Generic Name Dose Route Start Last Admin Trade Name Freq PRN Reason Stop Dose Admin Sodium Chloride 1,000 mls @ 999 mls/hr 07/01/18 18:45 07/01/18 19:05 Normal Saline IV 999 mls/hr ASDIRECTED COCO Administration Discontinued Medications Generic Name Dose Route Start Last Admin Trade Name Freq PRN Reason Stop Dose Admin Al Hydroxide/Mg Hydroxide 15 0 ml 07/01/18 20:20 07/01/18 20:51 ml/ Metoclopramide HCl 5 mg/ PO 07/01/18 20:21 10 each Lidocaine HCl 5 ml ONETIME ONE Administration Dicyclomine HCl 10 mg 07/01/18 20:20 07/01/18 20:50 Bentyl PO 07/01/18 20:21 10 mg ONETIME ONE Administration Sodium Chloride 1,000 mls @ 999 mls/hr 07/01/18 17:30 07/01/18 17:57 Normal Saline IV 07/01/18 18:30 999 mls/hr STAT ONE Administration Iopamidol 100 ml 07/01/18 18:55 07/01/18 18:56 Isovue Multipack-370 (76%) IVPUSH 07/01/18 18:56 100 ml ONETIME STA Administration Ketorolac Tromethamine 30 mg 07/01/18 17:33 07/01/18 17:58 Toradol IVPUSH 07/01/18 17:34 30 mg ONETIME ONE Administration Morphine Sulfate 2 mg 07/01/18 19:09 07/01/18 19:36 Morphine IVPUSH 07/01/18 19:10 2 mg ONETIME ONE Administration Morphine Sulfate 4 mg 07/01/18 20:20 Morphine IVPUSH 07/01/18 20:21 ONETIME ONE Ondansetron HCl 4 mg 07/01/18 17:30 07/01/18 17:58 Zofran IVPUSH 07/01/18 17:31 4 mg ONETIME ONE Administration Departure - Departure Time of Disposition: 20:24 Disposition: Home, Self-Care 01 Clinical Impression: Nonspecific abdominal pain Leukocytosis, unspecified Qualifiers: Leukocytosis type: unspecified Qualified Code(s): D72.829 - Elevated white blood cell count, unspecified Diarrhea Qualifiers: Diarrhea type: unspecified type Qualified Code(s): R19.7 - Diarrhea, unspecified - Discharge Information Prescriptions: Acetaminophen/HYDROcodone [Adams 325-5 MG] 1 dose PO Q4H PRN #15 tablet PRN Reason: Pain Ondansetron [Zofran ODT] 4 mg PO Q6H PRN #8 tab.dis PRN Reason: Nausea Instructions: Diarrhea, Adult, [id number] Referrals: PCP,None [Primary Care Provider] - Forms: ED Department Discharge Additional Instructions: The following information is given to patients seen in the emergency department who are being discharged to home. This information is to outline your options for follow-up care. We provide all patients seen in our emergency department with a follow-up referral. The need for follow-up, as well as the timing and circumstances, are variable depending upon the specifics of your emergency department visit. If you don't have a primary care physician on staff, we will provide you with a referral. We always advise you to contact your personal physician following an emergency department visit to inform them of the circumstance of the visit and for follow-up with them and/or the need for any referrals to a consulting specialist. The emergency department will also refer you to a specialist when appropriate. This referral assures that you have the opportunity for follow-up care with a specialist. All of these measure are taken in an effort to provide you with optimal care, which includes your follow-up. Under all circumstances we always encourage you to contact your private physician who remains a resource for coordinating your care. When calling for follow-up care, please make the office aware that this follow-up is from your recent emergency room visit. If for any reason you are refused follow-up, please contact the [facility] Emergency Department at and asked to speak to the emergency department charge nurse. [facility] Primary Care [address] [place] [id number] [address] [facility] Specialty Care - General Surgery Professional Building [address] [place] [address], [address] [place] [address] 1. Supportive care measures such as Tylenol and ibuprofen for pain and fever management. Zofran and Adams have been prescribed. Please take as directed. 2. Ensure you are staying hydrated by drinking plenty of fluids. 3. Get plenty of rest. [place] diet and advance as tolerated. 4. Please follow up with your primary care provider or [facility] next week. Return to the ED as needed and as discussed. - My Orders Last 24 Hours: My Active Orders 07/01/18 18:08 CULTURE STOOL + CAMPY+SHIGATOX [RM] Stat 07/01/18 18:45 Sodium Chloride 0.9% [Normal Saline] 1,000 ml IV ASDIRECTED 07/01/18 20:52 Orthostatic Vital Signs [RC] ASDIRECTED - Assessment/Plan Last 24 Hours: My Active Orders 07/01/18 18:08 CULTURE STOOL + CAMPY+SHIGATOX [RM] Stat 07/01/18 18:45 Sodium Chloride 0.9% [Normal Saline] 1,000 ml IV ASDIRECTED 07/01/18 20:52 Orthostatic Vital Signs [RC] ASDIRECTED
[2018-07-01 18:22] LABS: CHLORIDE,CL 96 mmol/L (98-107); SODIUM,NA 135 mmol/L (136-145)
[2018-07-01] MEDS ORDERED: Sodium Chloride 0.9% 1,000 ML IV SCH (18:45)
[2018-07-01] MEDS ORDERED: Iopamidol 755 MG/ML 500 ML Multipack Bottle IVPUSH STA (18:55)
[2018-07-01] MEDS ORDERED: Morphine 2 MG/ML Syringe IVPUSH ONE (19:09)
--- NOTE | 2018-07-01 20:00 | CT ---
INDICATION: Abdominal pain. Leukocytosis. Nausea and vomiting TECHNIQUE: CT abdomen and pelvis acquired with IV contrast. 100 mL of Isovue 370 administered. COMPARISON: None available FINDINGS: Lower chest: Unremarkable. Liver: Unremarkable. Spleen: Splenomegaly measuring up to 14.5 cm in greatest dimension. Pancreas: Unremarkable. Gallbladder and bile ducts: An apparent punctate density at the gallbladder neck on image 37, a tiny gallstone versus artifact. Adrenal glands: Unremarkable. Kidneys: No hydronephrosis. A subcentimeter right renal low-density lesion, statistically a cyst. GI tract: No bowel obstruction. A normal appendix. No significant pericolonic changes. Vascular structures: Unremarkable. Lymph nodes: Unremarkable. Miscellaneous: No free air or significant free fluid. Pelvic Organs: Unremarkable. Bones: Unremarkable for age. IMPRESSION: No evidence of an acute process in the abdomen or pelvis. Splenomegaly. Dictated by Robin Arzate MD @ 07/01/2018 7:55:24 PM Please note that all CT scans at this facility use dose modulation, iterative reconstruction, and/or weight-based dosing when appropriate to reduce radiation dose to as low as reasonably achievable. Dictated by: Robin Arzate MD @ 07/01/2018 19:59:34 (Electronically Signed)
[2018-07-01] MEDS ORDERED: Dicyclomine 10 MG Cap PO ONE (20:20)
[2018-07-01] MEDS ORDERED: Morphine 4 MG/ML Syringe IVPUSH ONE (20:20)
[2018-07-01] MEDS ORDERED: Alum Hydrox/Mag Hydrox/Simeth 15 ML, Metoclopramide 5 MG, Lidocaine 2% 5 ML PO ONE ×3 (20:20)
[2018-07-01 21:58] VITALS: BP 112/76
--- NOTE | 2018-07-02 11:24 | CONS ---
DATE OF CONSULTATION: 07/01/2018 DATE OF : 1985 PRIMARY CARE PHYSICIAN: None PCP CONCERNING QUESTION: Abdominal pain and splenomegaly. HISTORY OF PRESENT ILLNESS: The patient is a 33-year-old lady, complaining of a 4-day history of gradual onset of abdominal pain. Pain is diffuse and no particular activity that will cause the pain and food does not seem to be related. The patient also complains a 4-day history of watery diarrhea. Denied black stool. Denied bright red blood per rectum. Denied prior episode. PAST MEDICAL HISTORY: Significant for no diabetes, DC, CVA, or hypertension. SOCIAL HISTORY: Denied tobacco or alcohol abuse. PAST SURGICAL HISTORY: Normal vaginal delivery x3 and tubal ligation. ALLERGIES: Please refer to nursing for details. MEDICATIONS: Please refer to nursing for details. PHYSICAL EXAMINATION: GENERAL: A very pleasant lady, even smiles to the doctor, in no acute distress. HEENT: Normocephalic and atraumatic. Sclerae anicteric. LUNGS: Clear to auscultation. HEART: Regular rate and rhythm. ABDOMEN: Soft and nondistended. No pulsating tender midline abdominal structure. No surgical scar. No hernia appreciated. On three examinations, the patient reports 3 different localized pain. On the pain scale, they are 5. The first one in epigastrium, second one is in right lower quadrant, the third one is in left lower quadrant. No rebound tenderness. LABORATORY DATA: Upon consultation, white count 16, and the liver function test is normal. CAT scan shows splenomegaly of 14.5 in the greatest diameter and also possible small gallstones. IMPRESSION: Nonspecific abdominal pain with a 4-day history of diarrhea, most painful spot is epigastrium. PLAN: We will recommend: 1. Get a [place] test to check for possible association with splenomegaly. 2. We will give some GI cocktail to see whether the peptic ulcer disease is part of differential, and the patient probably will benefit to be followed in the office for EGD. Follow up with EGD to check for peptic ulcer disease and also would benefit to have a HIDA scan eventually to look for biliary tree disease. Plan has been discussed with Steve and follow up with me in 1 to 2 weeks. Thank you for the kind referral. ANTONY / ONIEL /[id number]
== END 2018-07-01 21:20 | disposition home or self-care (01) ==
LOC: MW.ED 17:13
DX: R10.84 Generalized abdominal pain (principal); R19.7 Diarrhea, unspecified; R11.2 Nausea with vomiting, unspecified; D72.829 Elevated white blood cell count, unspecified
CPT/HCPCS: 36415; 74177; 80053; 81001; 82150; 83690; 85025; 86308; 87804; 96361; 96374; 96375; 99284; A9270; J1885; J2270; J2405; J7040; Q9967

== ENCOUNTER 2018-07-02 03:07 | Emergency (ER) | payer SELFPAY ==
--- NOTE | 2018-07-02 03:09 | EDM.PDOC ---
ED HPI GENERAL MEDICAL PROBLEM - General Stated Complaint: SORE THROAT, PAIN Time Seen by Provider: 07/02/18 03:08 Source of Information: Reports: Patient - History of Present Illness INITIAL COMMENTS - FREE TEXT/NARRATIVE: HISTORY AND PHYSICAL: History of present illness: [Patient in earlier with abdominal pain and episode of vomiting, she was tested for influenza even had CT imaging always essentially negative for acute process check for mono as well however and influenza however she has spiked a fever all all of her abdominal pain is gone vomiting is gone she has general malaise and sore throat this time some difficulty with solid food no difficulty with liquid muffled voice drooling or trismus Review of systems: As per history of present illness and below otherwise all systems reviewed and negative. Past medical history: As per history of present illness and as reviewed below otherwise noncontributory. Surgical history: As per history of present illness and as reviewed below otherwise noncontributory. Social history: No reported history of drug or alcohol abuse. Family history: As per history of present illness and as reviewed below otherwise noncontributory. Physical exam: HEENT: Atraumatic, normocephalic, pupils reactive, negative for conjunctival pallor or scleral icterus, mucous membranes moist, throat clear, neck supple, nontender, trachea midline. Moderate erythema Lungs: Clear to auscultation, breath sounds equal bilaterally, chest nontender. Heart: S1S2, regular, negative for clicks, rubs, or JVD. Abdomen: Soft, nondistended, nontender. Negative for masses or hepatosplenomegaly. Negative for costovertebral tenderness. Pelvis: Stable nontender. Genitourinary: Deferred. Rectal: Deferred. Extremities: Atraumatic, negative for cords or calf pain. Neurovascular unremarkable. Neuro: Awake, alert, oriented. Cranial nerves II through XII unremarkable. Cerebellum unremarkable. Motor and sensory unremarkable throughout. Exam nonfocal. Diagnostics: [ Aubrie See complete detailed lab from earlier ]-CBC CMP UA mono lipase CT abdomen pelvis with contrast Therapeu amoxil Impression: [acute pharyngitis ] Definitive disposition and diagnosis as appropriate pending reevaluation and review of above. 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 Musculoskeletal History: Reports: None Neurological History: Reports: None Endocrine/Metabolic History: Reports: None Dermatologic History: Reports: None - Infectious Disease History Infectious Disease History: Reports: Chicken Pox - Past Surgical History HEENT Surgical History: Reports: None Cardiovascular Surgical History: Reports: None Respiratory Surgical History: Reports: None Female Surgical History: Reports: Other (See Below) Other Female Surgeries/Procedures: salpingectomy Neurological Surgical History: Reports: None Musculoskeletal Surgical History: Reports: None Social & Family History - Family History Family Medical History: Noncontributory - Caffeine Use Caffeine Use: Reports: Coffee ED ROS GENERAL - Review of Systems Review Of Systems: See Below ED EXAM, GENERAL - Physical Exam Exam: See Below Departure - Departure Time of Disposition: 03:22 Disposition: Home, Self-Care 01 Condition: Good Clinical Impression: Pharyngitis - Discharge Information Additional Instructions: The following information is given to patients seen in the emergency department who are being discharged to home. This information is to outline your options for follow-up care. We provide all patients seen in our emergency department with a follow-up referral. The need for follow-up, as well as the timing and circumstances, are variable depending upon the specifics of your emergency department visit. If you don't have a primary care physician on staff, we will provide you with a referral. We always advise you to contact your personal physician following an emergency department visit to inform them of the circumstance of the visit and for follow-up with them and/or the need for any referrals to a consulting specialist. The emergency department will also refer you to a specialist when appropriate. This referral assures that you have the opportunity for follow-up care with a specialist. All of these measure are taken in an effort to provide you with optimal care, which includes your follow-up. Under all circumstances we always encourage you to contact your private physician who remains a resource for coordinating your care. When calling for follow-up care, please make the office aware that this follow-up is from your recent emergency room visit. If for any reason you are refused follow-up, please contact the [facility] emergency department at and asked to speak to the emergency department charge nurse.
[2018-07-02] MEDS ORDERED: cefTRIAXone 1 GM Vial IM ONE (03:22)
[2018-07-02] MEDS ORDERED: cefTRIAXone 1 GM in Lidocaine 1% 4 ML IM ONE (03:29)
[2018-07-02 03:59] VITALS: BP 100/70
== END 2018-07-02 04:01 | disposition home or self-care (01) ==
LOC: MW.ED 03:07
DX: J02.9 Acute pharyngitis, unspecified (principal)
CPT/HCPCS: 96372; 99282; J0696; J2001

== ENCOUNTER 2018-07-05 03:33 | Emergency (ER) | payer SELFPAY ==
[2018-07-05] MEDS ORDERED: methylPREDNISolone Sodium Succinate 125 MG/2 ML SDV IM ONE (03:45)
[2018-07-05] MEDS ORDERED: cefTRIAXone 1 GM Vial IM ONE (03:45)
--- NOTE | 2018-07-05 03:48 | EDM.PDOC ---
ED HPI GENERAL MEDICAL PROBLEM - General Chief Complaint: ENT Problem Stated Complaint: SHORTNESS OF BREATH Time Seen by Provider: 07/05/18 03:46 Source of Information: Reports: Patient - History of Present Illness INITIAL COMMENTS - FREE TEXT/NARRATIVE: HISTORY AND PHYSICAL: History of present illness: [Patient has strep history she is on day 3 of amoxicillin presents with stated complaint of shortness of breath however she is able to speak in full sentences no muffled voice drooling or trismus Tonsils are 4+ no stridor No nausea vomiting chills sweats she does complain of general malaise] Review of systems: As per history of present illness and below otherwise all systems reviewed and negative. Past medical history: As per history of present illness and as reviewed below otherwise noncontributory. Surgical history: As per history of present illness and as reviewed below otherwise noncontributory. Social history: No reported history of drug or alcohol abuse. Family history: As per history of present illness and as reviewed below otherwise noncontributory. Physical exam: HEENT: Atraumatic, normocephalic, pupils reactive, negative for conjunctival pallor or scleral icterus, mucous membranes moist, throat clear, neck supple, nontender, trachea midline. Moderate erythema no exudates tonsils 4+ no stridor no meningeal signs Lungs: Clear to auscultation, breath sounds equal bilaterally, chest nontender. Heart: S1S2, regular, negative for clicks, rubs, or JVD. Abdomen: Soft, nondistended, nontender. Negative for masses or hepatosplenomegaly. Negative for costovertebral tenderness. Pelvis: Stable nontender. Genitourinary: Deferred. Rectal: Deferred. Extremities: Atraumatic, negative for cords or calf pain. Neurovascular unremarkable. Neuro: Awake, alert, oriented. Cranial nerves II through XII unremarkable. Cerebellum unremarkable. Motor and sensory unremarkable throughout. Exam nonfocal. Diagnostics: [] Therapeutics: []Letter Medrol 125 mg IM Rocephin 1 g IM Continue amoxicillin Impression: [] pharyngitis/tonsillitis Definitive disposition and diagnosis as appropriate pending reevaluation and review of above. Throat Pain Score (Numeric/FACES): 6 - Related Data Allergies Allergy/AdvReac Type Severity Reaction Status Date / Time No Known Allergies Allergy Verified 07/05/18 03:37 Home Meds: Home Meds . 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: Musculoskeletal History: Reports: None Neurological History: Reports: None Psychiatric History: Reports: Other (See Below) Other Psychiatric History: PPD Endocrine/Metabolic History: Reports: None Dermatologic History: Reports: None - Infectious Disease History Infectious Disease History: Reports: Chicken Pox - Past Surgical History HEENT Surgical History: Reports: None Cardiovascular Surgical History: Reports: None Respiratory Surgical History: Reports: None Female Surgical History: Reports: Other (See Below) Other Female Surgeries/Procedures: salpingectomy Neurological Surgical History: Reports: None Musculoskeletal Surgical History: Reports: None Social & Family History - Family History Family Medical History: Noncontributory - Tobacco Use Smoking Status *Q: Former Smoker Used Tobacco, but Quit: Yes Month/Year Tobacco Last Used: 2017 - Caffeine Use Caffeine Use: Reports: Coffee, Soda - Recreational Drug Use Recreational Drug Use: No ED ROS GENERAL - Review of Systems Review Of Systems: See Below ED EXAM, GENERAL - Physical Exam Exam: See Below Course - Vital Signs Last Recorded V/S: Last Vital Signs Temp 97.7 F 07/05/18 03:35 Pulse 111 H 07/05/18 03:35 Resp 20 07/05/18 03:35 BP 139/82 07/05/18 03:35 Pulse Ox 100 07/05/18 03:35 - Orders/Labs/Meds Orders: Medication Orders Methylprednisolone Sodium Succinate (Solu-Medrol) 125 mg IM ONETIME ONE Stop: 07/05/18 03:46 Meds: Medications Generic Name Dose Route Start Last Admin Trade Name Freq PRN Reason Stop Dose Admin Methylprednisolone Sodium Succinate 125 mg 07/05/18 03:45 Solu-Medrol IM 07/05/18 03:46 ONETIME ONE Discontinued Medications Generic Name Dose Route Start Last Admin Trade Name Freq PRN Reason Stop Dose Admin Ceftriaxone Sodium 1 gm 07/05/18 03:45 Rocephin IM 07/05/18 03:46 ONETIME ONE Departure - Departure Time of Disposition: 03:47 Disposition: Home, Self-Care 01 Condition: Good Clinical Impression: Tonsillitis, Pharyngitis - Discharge Information Additional Instructions: The following information is given to patients seen in the emergency department who are being discharged to home. This information is to outline your options for follow-up care. We provide all patients seen in our emergency department with a follow-up referral. The need for follow-up, as well as the timing and circumstances, are variable depending upon the specifics of your emergency department visit. If you don't have a primary care physician on staff, we will provide you with a referral. We always advise you to contact your personal physician following an emergency department visit to inform them of the circumstance of the visit and for follow-up with them and/or the need for any referrals to a consulting specialist. The emergency department will also refer you to a specialist when appropriate. This referral assures that you have the opportunity for follow-up care with a specialist. All of these measure are taken in an effort to provide you with optimal care, which includes your follow-up. Under all circumstances we always encourage you to contact your private physician who remains a resource for coordinating your care. When calling for follow-up care, please make the office aware that this follow-up is from your recent emergency room visit. If for any reason you are refused follow-up, please contact the [facility] emergency department at and asked to speak to the emergency department charge nurse.
[2018-07-05] MEDS ORDERED: Lidocaine 1% 2 ML ONE (03:49)
[2018-07-05 04:49] VITALS: BP 130/80
== END 2018-07-05 04:43 | disposition home or self-care (01) ==
LOC: MW.ED 03:33
DX: J03.90 Acute tonsillitis, unspecified (principal); Z87.891 Personal history of nicotine dependence
CPT/HCPCS: 96372; 99284; J0696; J2001; J2930

== ENCOUNTER 2019-09-15 01:31 | Emergency (ER) | payer MEDICAID ==
[2019-09-15] MEDS ORDERED: Ketorolac 60 MG/2 ML SDV IM ONE (01:50)
[2019-09-15] MEDS ORDERED: HYDROmorphone 1 MG/ML Syringe IM ONE ×2 (01:50→02:42)
--- NOTE | 2019-09-15 01:50 | EDM.PDOC ---
ED HPI GENERAL MEDICAL PROBLEM - General Chief Complaint: Lower Extremity Injury/Pain Stated Complaint: RIGHT FOOT PAIN Time Seen by Provider: 09/15/19 01:45 Source of Information: Reports: Patient - History of Present Illness INITIAL COMMENTS - FREE TEXT/NARRATIVE: Is a 34-year-old female who presents to the ER secondary to right lower extremity pain. The patient had an open trimalleolar fracture of her right ankle approximately 10 days ago and was transferred to another facility for orthopedic repair. She is scheduled to have her cast removed and replaced this coming couple of days. She has been controlling her pain with Percocet 5 mg tablets every 4-6 hours but tonight she woke up with severe pain. She has not fallen, no fevers, nothing unusual has happened. She took her Percocet but it is not controlling her pain. Pain is located at her surgical site and not in the calf. The patient was given Dilaudid 1 mg IM and Toradol 60 mg IM initially and she was still having a significant amount of pain about 30 minutes later. She then told me that she had been on Percocet 5 mg as well as some oxycodone for about 3 weeks secondary to some tonsils just prior to the surgery so I feel she is slightly habituated. I gave her another milligram of Dilaudid and the patient is now extremely comfortable. A posterior splint has been applied and she has been instructed to contact her surgeons today to see if they can work her in a day early or increase her Percocet prescription slightly. 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: Musculoskeletal History: Reports: None Neurological History: Reports: None Psychiatric History: Reports: Other (See Below) Other Psychiatric History: PPD Endocrine/Metabolic History: Reports: None Dermatologic History: Reports: None - Infectious Disease History Infectious Disease History: Reports: Chicken Pox - Past Surgical History HEENT Surgical History: Reports: Tonsillectomy (August 26, 2019.) Cardiovascular Surgical History: Reports: None Respiratory Surgical History: Reports: None Female Surgical History: Reports: Other (See Below) Other Female Surgeries/Procedures: salpingectomy Neurological Surgical History: Reports: None Musculoskeletal Surgical History: Reports: None Social & Family History - Family History Family Medical History: Noncontributory - Caffeine Use Caffeine Use: Reports: Coffee, Soda Review of Systems - Review of Systems Review Of Systems: See Below (Positive for light right lower extremity pain, negative for fevers, negative for difficulty breathing, all other Positives and pertinent negatives as per HPI. All other pertinent systems were reviewed and are negative) ED EXAM, GENERAL - Physical Exam Exam: See Below Free Text/Narrative:: Constitutional: Patient appears uncomfortable, Non-toxic appearance. HEENT: Normocephalic, Atraumatic, EOMI Neck: Normal range of motion, No stridor, trachea midline Respiratory: No respiratory distress, No tachypnea Cardiovascular: Deferred Gastrointestinal: Deferred Genital / Urinary: Deferred Musculoskeletal: All four extremities present, there is a cast over the right lower extremity, the distal foot that is showing has some edema but from what I can touch it appears neurovascular intact and the compartment appears soft Back: FROM Integument: Warm, Dry, Color is ethnicity appropriate, No rash. Neuro: Alert, Awake, No focal deficits noted Psych: Affect, Judgement, mood normal Course - Vital Signs Text/Narrative:: I used the cast cutter to remove the cast from the patient's right lower extremity and underneath the compartments are soft, there is some expected ecchymosis around the lower foot but no unusual swelling, both the lateral and medial incisions all appear to be healing appropriately. There is no erythema, no discharge, no warmth, the wounds look excellent. The foot is neurovascular intact. Given that there are no signs of any emergencies the patient just appears to be having a pain crisis which can happen. The patient does have a ride home and she will be given a dose of Toradol 60 mg IM, and Dilaudid 1 mg IM. We will also replace her cast with a posterior splint and she will have to continue nonweightbearing activities as previously instructed. Last Recorded V/S: Last Vital Signs Temp 35.7 C L 09/15/19 01:32 Pulse 83 09/15/19 02:53 Resp 18 09/15/19 02:53 BP 124/72 09/15/19 02:53 Pulse Ox 97 09/15/19 02:53 - Orders/Labs/Meds Meds: Medications Discontinued Medications Generic Name Dose Route Start Last Admin Trade Name Sheridan PRN Reason Stop Dose Admin Hydromorphone HCl 1 mg 09/15/19 01:50 09/15/19 02:11 Dilaudid IM 09/15/19 01:51 1 mg ONETIME ONE Administration Hydromorphone HCl 1 mg 09/15/19 02:42 09/15/19 02:51 Dilaudid IM 09/15/19 02:43 1 mg ONETIME ONE Administration Ketorolac Tromethamine 60 mg 09/15/19 01:50 09/15/19 02:09 Toradol IM 09/15/19 01:51 60 mg ONETIME ONE Administration Departure - Departure Time of Disposition: 03:12 Disposition: Home, Self-Care 01 Condition: Good Clinical Impression: Leg pain, right - Discharge Information *PRESCRIPTION DRUG MONITORING PROGRAM REVIEWED*: Not Applicable *COPY OF PRESCRIPTION DRUG MONITORING REPORT IN PATIENT [facility]: Not Applicable Referrals: PCP,Not In Area [Primary Care Provider] - Forms: ED Department Discharge Additional Instructions: Continue your previous postoperative instructions but contact your surgeons today to let them know that you had to go to the ER. Also let them know that your surgical wounds look good. Sepsis Event Note - Focused Exam Vital Signs: Vital Signs Temp Pulse Resp BP Pulse Ox 09/15/19 02:53 83 18 124/72 97 09/15/19 01:32 35.7 C L 113 H 17 143/85 H 99 Date Exam was Performed: 09/15/19 Time Exam was Performed: 03:09
[2019-09-15 02:54] VITALS: BP 124/72; PULSE 83
== END 2019-09-15 03:21 | disposition home or self-care (01) ==
LOC: MW.ED 01:31
DX: M79.604 Pain in right leg (principal)
CPT/HCPCS: 29515; 96372; 99283; J1170; J1885